=== PATIENT | male | born 1960 | race Caucasian/White ===

== ENCOUNTER 2024-01-16 15:23 | Emergency (ER) | payer OTHER ==
[2024-01-16 15:59] VITALS: RESP 18
--- NOTE | 2024-01-16 17:05 | ED ---
Abdominal Pain HPI - General Chief Complaint: Abdominal Pain Stated Complaint: abd pain Time Seen by Provider: 01/16/24 16:13 Source: patient Mode of arrival: ambulatory Limitations: no limitations - History of Present Illness Initial Comments: Patient is a 63-year-old gentleman past medical history alcohol misuse presenting for evaluation after being noted to right upper quadrant pain at [place]. Patient states he has a long history of alcohol abuse, stating at one point he was drinking a gallon a day. Approximately 10 days ago he knew he was going to begin [facility] [place] so began cutting back on alcohol. He states over the last 10 days he has had 1 beer every few days. Last drink was a single beer last night. Patient was being seen at [place] this morning at 10 AM more, during his evaluation he was noted to have hepatomegaly and right upper quadrant pain. Patient states he had not noticed any right upper abdominal pain before and denies any abdominal pain currently this area is palpated. Patient states that he has no history of alcohol withdrawal nor any alcohol withdrawal seizures. Denies any illicit drug use. Denies any nausea or vomiting. Denies any auditory visual donations. States that he drinks because of anxiety and due to this he has had difficulty sleeping over the last 10 days. Denies black or bloody stools. Does state that he has had 3 yellow loose stools in the last 3 days. Endorses lightheadedness because he states he has not eaten this morning, lightheadedness worsens upon standing. Denies shortness of breath, chest pain, fevers, chills. No prior abdominal surgeries. Denies Tylenol use. Denies IV drug use. - Related Data Allergies Allergy/AdvReac Type Severity Reaction Status Date / Time No Known Allergies Allergy Verified 01/16/24 17:39 Review of Systems ROS Statement: Those systems with pertinent positive or pertinent negative responses have been documented in the HPI. ROS Other: All systems not noted in ROS Statement are negative. Past Medical History Past Medical History: No Reported History History of Any Multi-Drug Resistant Organisms: None Reported Past Surgical History: Orthopedic Surgery Past Psychological History: Anxiety, Depression Smoking Status: Current every day smoker Past Alcohol Use History: Abuse, Daily, Heavy Past Drug Use History: None Reported General Exam - General Exam Comments Initial Comments: PE: CONSTITUTIONAL: no apparent distress, nontoxic though chronically ill-appearing, cheeks are sunken, eyes are sunken SKIN: warm, dry, mildly jaundiced, no hives or petechiae EYES: pupils are equally round, extraocular movements intact without nystagmus, clear conjunctiva, sclera are icteric HENT: normocephalic, atraumatic, dry mucus membranes, oropharynx clear without exudates NECK: Nontender and supple with no nuchal rigidity, no lymphadenopathy, full range of motion PULMONARY: clear to auscultation without wheezes, rhonchi, or rales, normal excursion, no accessory muscle use and no stridor CARDIOVASCULAR: regular rate, rhythm, normal S1 and S2. No appreciated murmurs. Strong radial pulses with intact distal perfusion GASTROINTESTINAL: soft, minimal right upper quadrant tenderness, hepatosplenomegaly, non-distended, no palpable masses, no rebound or guarding LYMPHATICS: no edema in lower extremities MUSCULOSKELETAL: Extremities have no gross deformity, no edema, redness, or swelling NEUROLOGIC: _a/o x 3, GCS 15, normal mentation and speech. Moves all extremities x 4 without motor or sensory deficit PSYCHIATRIC: _Mildly anxious mood and affect, thought process is clear and linear Limitations: no limitations Course Vital Signs 01/16/24 01/16/24 01/16/24 15:52 18:58 22:35 Temperature 98.0 F 98.1 F Pulse Rate 84 76 78 Respiratory 18 18 18 Rate Blood Pressure 112/77 124/81 115/60 O2 Sat by Pulse 95 97 98 Oximetry - Reevaluation(s) Reevaluation #1: Ultrasound reviewed, showed increased attenuation, hepatomegaly decreases ligation of vessels of the liver suggesting fatty infiltrate, trace amount of pericholecystic fluid, gallbladder hydrops measuring 3.13 0.5 cm in length, no sonographic Callejas sign, slightly enlarged CBD, gallbladder wall thickening with pericholecystic fluid, dilated gallbladder hemoglobin 10.9, no prior for comparison appears to show macrocytic anemia, platelets 203, nucleated red blood cells 3, max macrocytosis minutes sodium 124, chloride 88, bicarb 32, GFR g reater than 90, lactic 1.2, calcium 8, total bilirubin 5.2, AST/ALT 529/199, alkaline phosphatase 5 5544, amylase 545, lipase 123 01/16/24 18:56 Reevaluation #2: CT reviewed, showed "mild wall thickening of the gastric antrum, ring of gas around suspected pylorus, duodenal intussusception not excluded, consider evaluation with oral contrast, severe hepatic steatosis, large left inguinal hernia containing loops of colon with scattered colonic diverticula and free fluid correlate for left lower quadrant pain, colonic diverticulosis". Patient has no LLQ pain on exam. Additionally, no episodes of emesis, no nausea. Is able to pass stool and flatus. At this point will not proceed with oral contrast as will keep pain NPO for transfer. 01/16/24 20:21 01/19/24 10:42 Reevaluation #3: 01/16/24 21:[address] Ernandez, [facility], accepts for transfer Medical Decision Making - Medical Decision Making Was pt. sent in by a medical professional or institution (, PA, TAKER OFF BRAKER MACHINE, urgent care, hospital, or alf...) When possible be specific @ -Yes patient was sent by [place] Did you speak to anyone other than the patient for history (EMS, parent, family, police, friend...)? What history was obtained from this source @ -[No] Did you review nursing and triage notes (agree or disagree)? Why? @ -[I reviewed and agree with nursing and triage notes] Were old charts reviewed (outside hosp., previous admission, EMS record, old EKG, old radiological studies, urgent care reports/EKG's, alf records)? Report findings @ -No old charts available for review Differential Diagnosis (chest pain, altered mental status, abdominal pain women, abdominal pain men, vaginal bleeding, weakness, fever, dyspnea, syncope, headache, dizziness, GI bleed, back pain, seizure, CVA, palpatations, mental health, musculoskeletal)? @Differential diagnosis remains broad however top considerations include Cholecystitis, diverticulosis, liver cirrhosis pancreatitis, hepatitis, UTI, gastroenteritis, incarcerated hernia, bowel obstruction, constipation, peptic ulcer disease this is not meant to be an all-inclusive list EKG interpreted by me (3pts min.). @ -[As above] X-rays interpreted by me (1pt min.). @ -[None done] CT interpreted by me (1pt min.). @ -Please see hospital course U/S interpreted by me (1pt. min.). @ -Please see hospital course What testing was considered but not performed or refused? (CT, X-rays, U/S, labs)? Why? @ -[None] What meds were considered but not given or refused? Why? @ -Considered and offered patient Ativan to help him relax given anxiety and recent cessation of alcohol intake however patient initially politely declined. Later into his stay he was agreeable to Ativan. Did you discuss the management of the patient with other professionals (professionals i.e. , PA, TAKER OFF BRAKER MACHINE, lab, RT, psych nurse, secondary social studies teacher, senior staff accountant, teacher, seismology technical officer, casework specialist)? Give summary @ -[No] Was smoking cessation discussed for >3mins.? @ -[No] Was critical care preformed (if so, how long)? @ -Yes, 35 minutes spent obtaining history, examining the patient, interpretation and ordering of labs and imaging, reassessing the patient, discussion with transferring facility Were there social determinants of health that impacted care today? How? (Homele ssness, low income, unemployed, alcoholism, drug addiction, transportation, low edu. Level, literacy, decrease access to med. care, residential, rehab)? @ -Yes, alcoholism Was there de-escalation of care discussed even if they declined (Discuss DNR or withdrawal of care, Hospice)? DNR status @ -[No] What co-morbidities impacted this encounter? (DM, HTN, Smoking, COPD, CAD, Cancer, CVA, ARF, Chemo, Hep., AIDS, mental health diagnosis, sleep apnea, morbid obesity)? @ -Anxiety Was patient admitted / discharged? Hospital course, mention meds given and route, prescriptions, significant lab abnormalities, going to OR and other pertinent info. @ -[hospital course] Patient is a pleasant 63-year-old male with past medical history alcohol use disorder presenting from [place] after being found to have right upper quadrant tenderness and hepatomegaly. On assessment patient is awake, alert nontoxic though ill-appearing chronically ill-appearing, dry mucous membranes, cheeks are sunken, is mildly jaundiced with scleral icterus present, hepatosplenomegaly with minimal right upper quadrant tenderness, no lower extremity swelling. Plan for right upper quadrant ultrasound, will consider CT abdomen pelvis, plan for CBC, CMP, urinalysis, lipase, acetaminophen level, alcohol level, lactic. Updated patient of findings. On reassessment he is comfortable though agreeable with Ativan administration. Additionally ordered normal saline bolus given hyponatremia. No leukocytosis or lactic acidosis noted to indicate acute infection however out of concerns for possible cholecystitis noted on imaging ordered 1 dose of Zosyn. Paged Wolfgang Merchant as gastroenterology was not available at this hospital for further care of an evaluation of hydropic gallbladder, dilated CBD and in the setting of right upper quadrant pain, elevated LFTs, elevated total bilirubin patient requires urgent gastroenterology consultation. I discussed this with the patient and he was comfortable and agreeable with plan for transfer to [facility]. Patient accepted for transfer, emergency department to emergency department to [facility], ED. Patient transferred in stable condition. Undiagnosed new problem with uncertain prognosis? @ -[Yes Drug Therapy requiring intensive monitoring for toxicity (Heparin, Nitro, Insulin, Cardizem)? @ -[No] Were any procedures done? @ -[No] Diagnosis/symptom? @ -Hydropic gallbladder, elevated LFTs, hyperbilirubinemia Acute, or Chronic, or Acute on Chronic? @ -Acute Uncomplicated (without systemic symptoms) or Complicated (systemic symptoms)? @ -Complicated Side effects of treatment? @ -[No] Exacerbation, Progression, or Severe Exacerbation? @ -[No] Poses a threat to life or bodily function? How? (Chest pain, USA, NH, pneumonia, PE, COPD, DKA, ARF, appy, cholecystitis, CVA, Diverticulitis, Homicidal, Suicidal, threat to staff... and all critical care pts) @ -Yes if allowed to go untreated patient could become septic or develop liver failure - Lab Data Result diagrams: 01/16/24 17:46 01/16/24 17:46 Lab Results 01/16/24 01/16/24 01/16/24 Range/Units 16:58 17:46 17:46 WBC 9.2 (3.8-10.6) k/uL RBC 2.87 L (4.30-5.90) m/uL Hgb 10.9 L (13.0-17.5) gm/dL Hct 32.0 L (39.0-53.0) % MCV 111.3 H (80.0-100.0) fL MCH 37.9 H (25.0-35.0) pg MCHC 34.1 (31.0-37.0) g/dL RDW 16.2 H (11.5-15.5) % Plt Count 203 (150-450) k/uL MPV 10.2 Neutrophils % (Manual) 68 % Lymphocytes % (Manual) 18 % Monocytes % (Manual) 13 % Eosinophils % (Manual) 1 % Neutrophils # (Manual) 6.26 (1.3-7.7) k/uL Lymphocytes # (Manual) 1.66 (1.0-4.8) k/uL Monocytes # (Manual) 1.20 H (0-1.0) k/uL Eosinophils # (Manual) 0.09 (0-0.7) k/uL Nucleated RBCs 3 H (0-0) /100 WBC Manual Slide Review Performed Anisocytosis Slight Macrocytosis Marked A PT 10.8 (10.0-12.5) sec INR 1.0 (<1.2) APTT 23.8 (22.0-30.0) sec Sodium (137-145) mmol/L Potassium (3.5-5.1) mmol/L Chloride (98-107) mmol/L Carbon Dioxide (22-30) mmol/L Anion Gap mmol/L BUN (9-20) mg/dL Creatinine (0.66-1.25) mg/dL Est GFR (CKD-EPI)AfAm (>60 ml/min/1.73 sqM) Est GFR (CKD-EPI)NonAf (>60 ml/min/1.73 sqM) Glucose (74-99) mg/dL Plasma Lactic Acid Castro (0.7-2.0) mmol/L Calcium (8.4-10.2) mg/dL Total Bilirubin (0.2-1.3) mg/dL AST (17-59) U/L ALT (4-49) U/L Alkaline Phosphatase (38-126) U/L Ammonia (<30) umol/L Total Protein (6.3-8.2) g/dL Albumin (3.5-5.0) g/dL Amylase (30-110) U/L Lipase (23-300) U/L Urine Color Yellow Urine Appearance Clear (Clear) Urine pH 6.5 (5.0-8.0) Ur Specific Converse 1.004 (1.001-1.035) Urine Protein Negative (Negative) Urine Glucose (UA) Negative (Negative) Urine Ketones Negative (Negative) Urine Blood Negative (Negative) Urine Nitrite Negative (Negative) Urine Bilirubin Negative (Negative) Urine Urobilinogen 2.0 (<2.0) mg/dL Ur Leukocyte Esterase Negative (Negative) Acetaminophen ug/mL Serum Alcohol mg/dL 01/16/24 01/16/24 Range/Units 17:46 17:46 WBC (3.8-10.6) k/uL RBC (4.30-5.90) m/uL Hgb (13.0-17.5) gm/dL Hct (39.0-53.0) % MCV (80.0-100.0) fL MCH (25.0-35.0) pg MCHC (31.0-37.0) g/dL RDW (11.5-15.5) % Plt Count (150-450) k/uL MPV Neutrophils % (Manual) % Lymphocytes % (Manual) % Monocytes % (Manual) % Eosinophils % (Manual) % Neutrophils # (Manual) (1.3-7.7) k/uL Lymphocytes # (Manual) (1.0-4.8) k/uL Monocytes # (Manual) (0-1.0) k/uL Eosinophils # (Manual) (0-0.7) k/uL Nucleated RBCs (0-0) /100 WBC Manual Slide Review Anisocytosis Macrocytosis PT (10.0-12.5) sec INR (<1.2) APTT (22.0-30.0) sec Sodium 124 L (137-145) mmol/L Potassium 3.8 (3.5-5.1) mmol/L Chloride 88 L (98-107) mmol/L Carbon Dioxide 32 H (22-30) mmol/L Anion Gap 4 mmol/L BUN 9 (9-20) mg/dL Creatinine 0.44 L (0.66-1.25) mg/dL Est GFR (CKD-EPI)AfAm >90 (>60 ml/min/1.73 sqM) Est GFR (CKD-EPI)NonAf >90 (>60 ml/min/1.73 sqM) Glucose 102 H (74-99) mg/dL Plasma Lactic Acid Castro 1.2 (0.7-2.0) mmol/L Calcium 8.0 L (8.4-10.2) mg/dL Total Bilirubin 5.2 H (0.2-1.3) mg/dL AST 529 H (17-59) U/L ALT 199 H (4-49) U/L Alkaline Phosphatase 544 H (38-126) U/L Ammonia 20 (<30) umol/L Total Protein 5.1 L (6.3-8.2) g/dL Albumin 2.6 L (3.5-5.0) g/dL Amylase 545 H* (30-110) U/L Lipase 123 (23-300) U/L Urine Color Urine Appearance (Clear) Urine pH (5.0-8.0) Ur Specific Converse (1.001-1.035) Urine Protein (Negative) Urine Glucose (UA) (Negative) Urine Ketones (Negative) Urine Blood (Negative) Urine Nitrite (Negative) Urine Bilirubin (Negative) Urine Urobilinogen (<2.0) mg/dL Ur Leukocyte Esterase (Negative) Acetaminophen <10.0 ug/mL Serum Alcohol <10 mg/dL Critical Care Time Total Critical Care Time: 35 Disposition Clinical Impression: Hyponatremia, Hyperbilirubinemia, Elevated LFTs, Gallbladder hydrops, Hepatic steatosis, Common bile duct dilatation Disposition: OTHER INSTITUTION NOT DEFINED Condition: Stable Is patient prescribed a controlled substance at d/c from ED?: No Referrals: Zane Manuel MD [Primary Care Provider] - 1-2 days - Out of Hospital Transfer - Req. Specs Out of Hospital Transfer - Requested Specifics: Other Emergency Center
[2024-01-16] MEDS: SODIUM CHLORIDE 0.9% 1,000 ML IV STA (17:44)
[2024-01-16 17:59] LABS: Anisocytosis Slight; HGB 10.9 gm/dL (13.0-17.5); MCH 37.9 pg (25.0-35.0); MCHC 34.1 g/dL (31.0-37.0); MCV 111.3 fL (80.0-100.0); Macrocytosis Marked; Mean Platelet Volume 10.2; Platelet Count 203 k/uL (150-450); RBC 2.87 m/uL (4.30-5.90); RDW 16.2 % (11.5-15.5)
[2024-01-16 18:16] LABS: Partial Thromboplastin Time 23.8 sec (22.0-30.0); Prothrombin Time 10.8 sec (10.0-12.5)
[2024-01-16 18:18] LABS: Lactic Acid, Venous 1.2 mmol/L (0.7-2.0)
[2024-01-16 18:23] LABS: ALT 199 U/L (4-49); AST 529 U/L (17-59); Acetaminophen <10.0 ug/mL; African American GFR (CKD) >90 (>60 ml/min/1.73 sqM); Albumin 2.6 g/dL (3.5-5.0); Alcohol <10 mg/dL; Alkaline Phosphatase 544 U/L (38-126); Anion Gap 4 mmol/L; Blood Urea Nitrogen 9 mg/dL (9-20); Carbon Dioxide 32 mmol/L (22-30); Chloride 88 mmol/L (98-107); Glucose 102 mg/dL (74-99); Lipase 123 U/L (23-300); Non-African American GFR(CKD) >90 (>60 ml/min/1.73 sqM); Potassium 3.8 mmol/L (3.5-5.1); Sodium 124 mmol/L (137-145); Total Bilirubin 5.2 mg/dL (0.2-1.3); Total Protein 5.1 g/dL (6.3-8.2)
--- NOTE | 2024-01-16 18:33 | US ---
EXAMINATION TYPE: US liver DATE OF EXAM: 01/16/2024 COMPARISON: NONE CLINICAL INDICATION: Male, 63 years old with history of hepatomegaly; Patient states he is an alcohol ic. No abdominal pain or abdominal surgeries. TECHNIQUE: Multiple sonographic images of the right upper quadrant are obtained. FINDINGS: EXAM MEASUREMENTS: Liver Length: 22.3 cm Gallbladder Wall: 0.2 cm CBD: 0.9 cm Right Kidney: 11.4 x 4.1 x 5.7 cm BARREL MARKER NOTES:Slightly limited due to overlying bowel Pancreas: Obscured by bowel gas Liver: Increased attenuation, hepatomegaly, decreased visualization of vessels suggestive of fatty i nfiltrate. Gallbladder: Trace amount of pericholecystic fluid seen. Hydrops measuring 13.5cm in length. Wall ap pears WNL Evidence fr sonographic Callejas's sign: No CBD: Slightly enlarged Right Kidney: No hydronephrosis or masses seen as best seen today IMPRESSION: 1. Gallbladder wall thickening with pericholecystic fluid. There is also dilated gallbladder. Correl ate for signs and symptoms of cholecystitis. There is a negative sonographic Callejas's sign reported b y kennel manager dog track. 2. Hepatic steatosis.
[2024-01-16 18:36] LABS: Amylase 545 U/L (30-110); Neutrophils % (M) 68 %; Nucleated Red Blood Cells 3 /100 WBC (0-0); Total Cells Counted 200
[2024-01-16 18:37] LABS: Eosinophils # (M) 0.09 k/uL (0-0.7); Lymphocytes # (M) 1.66 k/uL (1.0-4.8); Neutrophils # (M) 6.26 k/uL (1.3-7.7); WBC 9.2 k/uL (3.8-10.6)
[2024-01-16 19:15] LABS: Appearance,Urine Clear (Clear); Bilirubin,Urine Negative (Negative); Blood,Urine Negative (Negative); Color,Urine Yellow; Glucose,Urine (UA) Negative (Negative); Ketones,Urine Negative (Negative); Leukocyte Esterase,Urine Negative (Negative); Nitrite,Urine Negative (Negative); PH, Urine 6.5 (5.0-8.0); Protein,Urine Negative (Negative); Specific Gravity,Urine 1.004 (1.001-1.035)
--- NOTE | 2024-01-16 20:01 | CT ---
EXAMINATION TYPE: CT abdomen pelvis w con CT DLP: 806.8 mGycm, Automated exposure control for dose reduction was used. DATE OF EXAM: 01/16/2024 7:43 PM COMPARISON: None CLINICAL INDICATION:Male, 63 years old with history of RUQ pain, hepatomegaly; ABD PAIN TECHNIQUE: Axial CT abdomen pelvis w con;Sagittal and coronal reformats were created on a separate w orkstation. Contrast used:100 mL of Isovue 300 with IV Contrast, (none if empty) Oral contrast used: without Oral Contrast (none if empty) FINDINGS: LOWER CHEST: Unremarkable ABDOMEN LIVER: Diffusely hypoattenuating parenchyma. The liver is enlarged for size measuring up to 21 mm in caudocranial length of the right hepatic lobe. GALLBLADDER AND BILE DUCTS: Unremarkable. PANCREAS: Unremarkable. SPLEEN: Unremarkable. ADRENAL GLANDS: Unremarkable. KIDNEYS AND URETERS: No evidence of hydronephrosis or renal calculus. The ureters are unremarkable. PELVIS BLADDER: Unremarkable REPRODUCTIVE: Unremarkable. ABDOMEN & PELVIS STOMACH AND BOWEL: No evidence of bowel obstruction. Thickening of the gastric antrum with ring of ga s around the pylorus into the duodenum series 301 image 33-38 multiple. Multiple colonic diverticula present. PERITONEUM/RETROPERITONEUM: No evidence of pneumoperitoneum or free fluid. VASCULATURE: No evidence of aortic aneurysm. MUSCULOSKELETAL: No acute osseous abnormalities LYMPH NODES: No gross evidence for lymphadenopathy. SOFT TISSUE/ABDOMINAL WALL: Unremarkable there is large left inguinal hernia containing colon and mul tiple diverticula with free fluid are seen within the hernia. IMPRESSION: 1. Mild wall thickening of the gastric antrum. Ring of gas around the suspected pylorus. Duodenal in tussusception not excluded. Consider evaluation with oral contrast. 2. Severe hepatic steatosis. 3. Large left inguinal hernia containing loops of colon with scattered colonic diverticula in free f luid correlate for left lower quadrant pain. 4. Colonic diverticulosis.
[2024-01-16] MEDS: PIPERACILLIN-TAZOBACTAM 4.5 GM in SODIUM CHLORIDE 0.9% 100 ML IVPB STA (21:23)
[2024-01-16] MEDS: LORazepam 2 MG/ML INJ IV STA (21:28)
[2024-01-16 22:41] VITALS: BP 115/60; PULSE 78; TEMP 98.1
== END 2024-01-16 22:40 | disposition other institution (70) ==
LOC: EC 15:23
DX: E87.1 Hypo-osmolality and hyponatremia (principal); E80.6 Other disorders of bilirubin metabolism; R79.89 Other specified abnormal findings of blood chemistry; R60.9 Edema, unspecified; K76.0 Fatty (change of) liver, not elsewhere classified; K83.8 Other specified diseases of biliary tract; K57.30 Diverticulosis of large intestine without perforation or abscess without bleeding; K40.90 Unilateral inguinal hernia, without obstruction or gangrene, not specified as recurrent; K82.8 Other specified diseases of gallbladder; F17.200 Nicotine dependence, unspecified, uncomplicated
CPT/HCPCS: 36415; 80053; 82140; 82150; 83605; 83690; 85025; 85610; 85730; 81003; 80143; 80320; 76705; 74177; 99285; 96365; 96375; 96361; J2543; J2060; Q9967

== ENCOUNTER 2024-02-09 08:30 | Emergency (ER) | payer OTHER ==
[2024-02-09] MEDS ORDERED: LIDOCAINE 1% INJ 10MG/ML (20 ML MDV) ONE (09:53)
== END 2024-02-09 10:51 | disposition home or self-care (01) ==
LOC: EC 08:30
CPT/HCPCS: 99283